=== PATIENT | female | born 1980 | race Two or more races ===

== ENCOUNTER 2022-07-07 08:26 | Observation (INO) | payer MEDICAID, OTHER | END 2022-07-07 10:37 | disposition home or self-care (01) | LOC: UNDOADMOB 08:26 → LDRP 08:26 → UNDODISOB 10:37 | PROVIDERS: ADMIT Obstetrics & Gynecology; ATTEND Obstetrics & Gynecology | DX: O60.03 Preterm labor without delivery, third trimester (principal); O30.003 Twin pregnancy, unspecified number of placenta and unspecified number of amniotic sacs, third trimester; Z3A.31 31 weeks gestation of pregnancy | CPT/HCPCS: 59025; 76818; 81002; 94760; G0378 ==

== ENCOUNTER 2022-07-14 09:45 | Observation (INO) | payer MEDICAID ==
[~2022-07-14] VITALS: Ht 165.1 cm; Wt 72.6 kg
[2022-07-14 11:41] LABS: Urine Bacteria FEW /hpf (None Seen); Urine Blood 1+ /uL (Negative); Urine WBC 9 /hpf (0 - 5)
[2022-07-14] MEDS ORDERED: NITR-87 PO (11:54)
[2022-07-14] MEDS ORDERED: PREN-96 PO (11:54)
[2022-07-14] MEDS ORDERED: BETAMETHASONE ACET (30mg/5ml) 5ml Vial 6mg/ml IM ONE (14:15)
[2022-07-14] MEDS ORDERED: LACTATED RINGER'S 1,000 ML IV ONE (14:15)
[2022-07-14] MEDS ORDERED: AMPICILLIN SOD 2GM INJ 2 GM in SODIUM CHL 0.9% 100 ML IV ONE (14:30)
== END 2022-07-14 15:37 | disposition critical access hospital (66) ==
LOC: LDRP 09:45 → UNDOADMOB 09:45 → LDRP 09:58
PROVIDERS: ADMIT Obstetrics & Gynecology; ATTEND Obstetrics & Gynecology
DX: O30.043 Twin pregnancy, dichorionic/diamniotic, third trimester (principal); O42.913 Preterm premature rupture of membranes, unspecified as to length of time between rupture and onset of labor, third trimester; O26.893 Other specified pregnancy related conditions, third trimester; R30.0 Dysuria; Z3A.32 32 weeks gestation of pregnancy; Z79.899 Other long term (current) drug therapy
CPT/HCPCS: 59025; 76818; 81001; 81002; 84112; 87086; 94760; 96365; 96372; G0378; J0290; J0702; Q0114; 96360

== ENCOUNTER 2022-07-29 09:09 | Emergency (ER) | payer MEDICAID ==
[~2022-07-29] VITALS: Ht 167.6 cm; Wt 65.0 kg
[~2022-07-29 09:09] MED LIST: NITR-87 PO; PREN-96 PO
[2022-07-29 10:00] VITALS: BP 106/67
== END 2022-07-29 10:35 | disposition home or self-care (01) ==
LOC: ER 09:09
DX: Z00.00 Encounter for general adult medical examination without abnormal findings (principal); Z86.2 Personal history of diseases of the blood and blood-forming organs and certain disorders involving the immune mechanism; Z79.899 Other long term (current) drug therapy